=== PATIENT | female | born 1985 | race Caucasian/White ===

== ENCOUNTER 2017-05-24 11:42 | Emergency (ER) | payer OTHER ==
[~2017-05-24] VITALS: Ht 160 cm; Wt 95.5 kg
[2017-05-24 11:44] VITALS: BP 148/88
== END 2017-05-24 13:36 | disposition home or self-care (01) ==
LOC: ED 13:30
DX: J18.9 Pneumonia, unspecified organism (principal)
CPT/HCPCS: 71046; 99284